=== PATIENT | female | born 1945 | race Caucasian/White ===

== ENCOUNTER 2021-02-22 06:35 | Emergency (ER) | payer MEDICARE ==
[2021-02-22 07:23] LABS: HEMOGLOBIN 14.1 gm/dl (12.3-15.3); RED BLOOD COUNT 4.7 M/UL (4.00-5.10); WHITE BLOOD COUNT 8.2 K/UL (4.5-11.0)
[2021-02-22 07:55] LABS: BUN/CREATININE RATIO 16 (0-10)
[2021-02-22] MEDS ORDERED: AUGMENTIN 875-1 EACH PO (09:53)
== END 2021-02-22 10:26 | disposition home or self-care (01) ==
LOC: ER1 06:35
PROVIDERS: Family Medicine
DX: K57.32 Diverticulitis of large intestine without perforation or abscess without bleeding (principal); E87.6 Hypokalemia; E11.9 Type 2 diabetes mellitus without complications; Z90.49 Acquired absence of other specified parts of digestive tract; Z90.710 Acquired absence of both cervix and uterus; Z79.84 Long term (current) use of oral hypoglycemic drugs; Z88.8 Allergy status to other drugs, medicaments and biological substances
CPT/HCPCS: 80053; 81001; 83690; 85025; 93005; 96365; 99284; J1335; Q9967

== ENCOUNTER 2021-05-14 21:02 | Emergency (ER) | payer MEDICARE ==
[~2021-05-14 21:02] MED LIST: AUGMENTIN 875-1 EACH PO
[2021-05-14 21:47] LABS: HEMOGLOBIN 13.5 gm/dl (12.3-15.3); RED BLOOD COUNT 4.29 M/UL (4.00-5.10); WHITE BLOOD COUNT 6.2 K/UL (4.5-11.0)
[2021-05-14 22:08] LABS: BUN/CREATININE RATIO 19 (0-10)
[2021-05-14] MEDS ORDERED: ANTIVERT 12.512.5 MG PO (22:55)
== END 2021-05-14 23:18 | disposition home or self-care (01) ==
LOC: ER1 21:02
PROVIDERS: Physician Assistant
DX: R55 Syncope and collapse (principal); E11.9 Type 2 diabetes mellitus without complications; I10 Essential (primary) hypertension; R42 Dizziness and giddiness; E78.5 Hyperlipidemia, unspecified; Z90.49 Acquired absence of other specified parts of digestive tract; Z90.710 Acquired absence of both cervix and uterus; Z88.8 Allergy status to other drugs, medicaments and biological substances
CPT/HCPCS: 70450; 71045; 80053; 82550; 82553; 82962; 83874; 84484; 85025; 93005; 99284

== ENCOUNTER → 2021-07-31 | Outpatient (CLI) | payer MEDICARE ==
[~2021-07-31] MED LIST changes: +ANTIVERT 12.512.5 MG PO
== END ==
LOC: HEART 5 07-26 09:30
DX: R00.0 Tachycardia, unspecified (principal)

== ENCOUNTER → 2022-03-12 | Outpatient (CLI) | payer MEDICARE | LOC: KOH-I 03-10 09:00 | DX: K76.0 Fatty (change of) liver, not elsewhere classified (principal) | CPT/HCPCS: 76700 ==